=== PATIENT | male | born 1980 | race Caucasian/White ===

== ENCOUNTER 2021-09-06 21:28 | Emergency (ER) | payer MEDICAID ==
[~2021-09-06] VITALS: Ht 193 cm; Wt 82.3 kg
[~2021-09-06 21:28] MED LIST: BACL20TA PO; CLON-529 PO; LOP25T PO; TRAM50TA2 PO; WEL100T PO
[2021-09-06] MEDS ORDERED: IBUP-1984 PO (23:14)
[2021-09-06] MEDS ORDERED: ketorolac tromethamine 15mg/ml inj. IM ONE (23:15)
[2021-09-06 23:34] VITALS: BP 116/61
== END 2021-09-06 23:38 | disposition home or self-care (01) ==
LOC: ER 21:28
DX: M25.562 Pain in left knee (principal); Z88.2 Allergy status to sulfonamides; Z88.1 Allergy status to other antibiotic agents; F31.9 Bipolar disorder, unspecified; G89.29 Other chronic pain; M54.9 Dorsalgia, unspecified; Z56.0 Unemployment, unspecified; V00.131A Fall from skateboard, initial encounter; Y93.89 Activity, other specified; Y92.89 Other specified places as the place of occurrence of the external cause; Y99.8 Other external cause status; Z59.00 Homelessness unspecified
CPT/HCPCS: 73564; 96372; 99284; J1885; 99283

== ENCOUNTER 2023-05-22 13:28 | Emergency (ER) | payer MEDICAID ==
[~2023-05-22] VITALS: Ht 193 cm; Wt 64.2 kg
[2023-05-22 14:05] VITALS: BP 115/65; PULSE 81; RESP 16; TEMP 99.9; O2SAT 97
[2023-05-22] MEDS ORDERED: clindamycin 150mg capsule PO ONE (14:30)
[2023-05-22] MEDS ORDERED: ibuprofen tablet 400 MG TABLET PO ONE (14:30)
[2023-05-22] MEDS ORDERED: CLIN300C54 PO (14:40)
[2023-05-22] MEDS ORDERED: IBUP-1986 PO (14:40)
== END 2023-05-22 14:58 | disposition home or self-care (01) ==
LOC: ER 13:29
DX: K04.7 Periapical abscess without sinus (principal); M19.90 Unspecified osteoarthritis, unspecified site; G89.29 Other chronic pain; F12.90 Cannabis use, unspecified, uncomplicated; Z56.0 Unemployment, unspecified; Z59.00 Homelessness unspecified; Z72.89 Other problems related to lifestyle; Z88.0 Allergy status to penicillin; Z88.2 Allergy status to sulfonamides; Z88.1 Allergy status to other antibiotic agents; Z79.899 Other long term (current) drug therapy
CPT/HCPCS: 96372; 99283

== ENCOUNTER 2023-07-08 09:21 | Emergency (ER) | payer MEDICAID ==
[~2023-07-08] VITALS: Ht 193 cm; Wt 80.0 kg
[~2023-07-08 09:21] MED LIST changes: +IBUP-1986 PO
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
[2023-07-08] MEDS ORDERED: TRAM50TA2 PO (11:34)
[2023-07-08] MEDS ORDERED: traMADol 50MG tablet PO ONE (11:40)
[2023-07-08 11:48] VITALS: RESP 16
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
== END 2023-07-08 12:20 | disposition home or self-care (01) ==
LOC: ER 09:21
DX: S60.512A Abrasion of left hand, initial encounter (principal); M79.642 Pain in left hand; M25.562 Pain in left knee; M19.90 Unspecified osteoarthritis, unspecified site; G89.29 Other chronic pain; F12.90 Cannabis use, unspecified, uncomplicated; Z56.0 Unemployment, unspecified; Z59.00 Homelessness unspecified; Z72.89 Other problems related to lifestyle; Z79.899 Other long term (current) drug therapy; Z88.0 Allergy status to penicillin; Z88.2 Allergy status to sulfonamides; Z88.1 Allergy status to other antibiotic agents; X99.8XXA Assault by other sharp object, initial encounter; Y93.89 Activity, other specified; Y92.481 Parking lot as the place of occurrence of the external cause; Y99.8 Other external cause status
CPT/HCPCS: 29515; 73564; 99283

== ENCOUNTER 2023-10-19 20:52 | Emergency (ER) | payer MEDICAID ==
[~2023-10-19] VITALS: Ht 190.5 cm; Wt 76.8 kg
[2023-10-19 21:06] VITALS: BP 111/66; PULSE 77; RESP 18; TEMP 98.9; O2SAT 98
== END 2023-10-19 23:43 | disposition home or self-care (01) ==
LOC: ER 20:53
DX: K40.90 Unilateral inguinal hernia, without obstruction or gangrene, not specified as recurrent (principal); M19.90 Unspecified osteoarthritis, unspecified site; G89.29 Other chronic pain; F12.90 Cannabis use, unspecified, uncomplicated; Z56.0 Unemployment, unspecified; Z59.00 Homelessness unspecified; Z72.89 Other problems related to lifestyle; Z88.0 Allergy status to penicillin; Z88.1 Allergy status to other antibiotic agents; Z88.2 Allergy status to sulfonamides; Z79.899 Other long term (current) drug therapy
CPT/HCPCS: 99281

== ENCOUNTER → 2024-03-30 | Outpatient (CLI) | payer MEDICAID | END | disposition home or self-care (01) | LOC: RAD 14:53 | PROVIDERS: ATTEND Physician Assistant | DX: K40.90 Unilateral inguinal hernia, without obstruction or gangrene, not specified as recurrent (principal) | CPT/HCPCS: 76856 ==

== ENCOUNTER → 2024-04-20 | Outpatient (CLI) | payer MEDICAID | END | disposition home or self-care (01) | LOC: RAD 11:43 | PROVIDERS: ATTEND Physician Assistant | DX: M77.12 Lateral epicondylitis, left elbow (principal) | CPT/HCPCS: 73080 ==

== ENCOUNTER 2024-12-06 04:22 | Emergency (ER) | payer MEDICAID ==
[~2024-12-06] VITALS: Ht 190.5 cm; Wt 77.3 kg
[~2024-12-06 04:22] MED LIST changes: +BACL10TA2 PO; -BACL20TA PO; -CLON-529 PO; +GABA-1405 PO; -IBUP-1986 PO; -LOP25T PO; +MELO-100 PO; -TRAM50TA2 PO; -WEL100T PO
[2024-12-06] MEDS: morphine 4 MG/ML inj SYRINge IV ONE (04:47)
[2024-12-06] MEDS: ondansetron/PF 4mg/2ml inj IV ONE (04:55)
[2024-12-06 04:56] LABS: BASOPHILS % (AUTO) 0.5 % (0-1); EOSINOPHILS % (AUTO) 0.7 % (0-6); HEMATOCRIT 41.1 % (42.0-52.0); HEMOGLOBIN 14.3 g/dl (14.0-17.9); LYMPHOCYTES # (AUTO) 1.4 X10'3 (1.1-4.8); LYMPHOCYTES % (AUTO) 20.7 % (21-51); MEAN CORPUSCULAR HEMOGLOBIN 31.2 PG (27.0-31.0); MEAN CORPUSCULAR HGB CONC 34.8 g/dL (33.0-36.5); MEAN CORPUSCULAR VOLUME 89.7 FL (78-98); MEAN PLATELET VOLUME 6.9 FL (7.4-10.4); MONOCYTES # (AUTO) 0.4 X10'3 (0-0.9); MONOCYTES % (AUTO) 6.5 % (2-12); NEUTROPHILS # (AUTO) 4.9 X10'3 (1.8-7.7); NEUTROPHILS % (AUTO) 71.6 % (42-75); PLATELET COUNT 235 X10'3 (140-440); RED BLOOD COUNT 4.59 X10'6 (4.70-6.10); RED CELL DISTRIBUTION WIDTH 13.8 % (11.5-14.5); WHITE BLOOD COUNT 6.9 X10'3 (4.5-11.0)
[2024-12-06] MEDS: propofol 10mg/ml 20ml vial IV ONE (04:56)
[2024-12-06] MEDS: normal saline 1000ml 1,000 ML IV ONE (04:58)
[2024-12-06 05:02] LABS: ALBUMIN 3.7 G/DL (3.4-5.0); ANION GAP 9 (8-16); BLOOD UREA NITROGEN 17 MG/DL (7-18); BUN/CREATININE RATIO 17.5 (10.0-20.0); CALCIUM 8.4 MG/DL (8.5-10.1); CHLORIDE 107 MMOL/L (99-107); CREATININE 0.97 MG/DL (0.60-1.10); GLUCOSE 106 MG/DL (70-104); POTASSIUM 3.8 MMOL/L (3.5-5.1); SODIUM 142 MMOL/L (135-145); TOTAL CARBON DIOXIDE 26.5 MMOL/L (24-32); eCRCL 106 ML/MIN; eGFR 84 ML/MIN
[2024-12-06] MEDS ORDERED: magnesium sulf-water 2g/50mL 50 ML IV PRN (08:00)
[2024-12-06] MEDS ORDERED: potassium Cl 40MEQ/1/2NS 520ml 520 ML IV PRN (08:00)
[2024-12-06] MEDS ORDERED: acetaminophen 325mg tablet PO PRN (08:00)
[2024-12-06] MEDS: docusate sod 100mg capsule PO SCH (08:00)
[2024-12-06] MEDS ORDERED: ondansetron/PF 4mg/2ml inj IV PRN (08:00)
[2024-12-06] MEDS: K and/or MAG REPLACEMENT MC SCH (08:00)
[2024-12-06] MEDS ORDERED: magnesium hydroxide 30ml (MOM) UD suspension PO PRN (08:00)
[2024-12-06] MEDS ORDERED: magnesium sulf-water 4G/100mL 100 ML IV PRN (08:00)
[2024-12-06] MEDS ORDERED: morphine 2 MG/ML inj. syringe IV PRN ×2 (08:00)
[2024-12-06] MEDS ORDERED: potassium Cl 20 mEq SR tablet PO PRN ×2 (08:00)
[2024-12-06] MEDS ORDERED: mag hydrox/Alum hydrox/simeth 30ml oral suspension PO PRN (08:00)
[2024-12-06] MEDS ORDERED: magnesium Cl slow-release 64mg tablet PO PRN (08:00)
[2024-12-06] MEDS: normal saline 1000ml 1,000 ML IV SCH (08:15)
[2024-12-06 08:25] VITALS: BP 101/55; PULSE 64; RESP 18; O2SAT 98
[2024-12-06 08:38] VITALS: TEMP 98.2
== END 2024-12-06 08:52 | disposition left against medical advice (07) ==
LOC: ER 04:23 → ED HOLD 07:54 → UNDOADMIN 07:54 → UNDODISIN 09:13
DX: K40.90 Unilateral inguinal hernia, without obstruction or gangrene, not specified as recurrent (principal); K40.30 Unilateral inguinal hernia, with obstruction, without gangrene, not specified as recurrent; F12.90 Cannabis use, unspecified, uncomplicated; R07.89 Other chest pain; Z88.0 Allergy status to penicillin; Z88.2 Allergy status to sulfonamides; Z91.041 Radiographic dye allergy status
CPT/HCPCS: 36415; 74176; 80048; 83605; 85025; 93005; 96361; 96374; 96375; 99285; J2270; J2405; J2704; J7030; 94760; A4620; G0378

== ENCOUNTER 2024-12-08 19:25 | Emergency (ER) | payer MEDICAID ==
[~2024-12-08] VITALS: Ht 190.5 cm; Wt 80.4 kg
[2024-12-08 19:32] VITALS: BP 114/53; PULSE 75; TEMP 99.2; O2SAT 94
[2024-12-08 20:57] VITALS: RESP 16
[2024-12-08] MEDS ORDERED: HYDR-3965 PO (22:24)
== END 2024-12-08 23:07 | disposition home or self-care (01) ==
LOC: ER 19:26
DX: K40.90 Unilateral inguinal hernia, without obstruction or gangrene, not specified as recurrent (principal); M19.90 Unspecified osteoarthritis, unspecified site; F12.90 Cannabis use, unspecified, uncomplicated; G89.29 Other chronic pain; Z88.0 Allergy status to penicillin; Z88.1 Allergy status to other antibiotic agents; Z88.2 Allergy status to sulfonamides; Z79.899 Other long term (current) drug therapy
CPT/HCPCS: 99284